=== PATIENT | male | born 1985 | race Caucasian/White ===

== ENCOUNTER 2017-10-21 09:59 | Emergency (ER) | payer OTHER ==
[~2017-10-21] VITALS: Ht 180.3 cm; Wt 85.0 kg
[2017-10-21 10:05] VITALS: TEMP 36.7; Ht 180.3 cm; Wt 85.0 kg
[2017-10-21] MEDS ORDERED: LIDOCAINE 1% BUFFERED INJ 5 ML VIAL INFIL ONE (10:30)
[2017-10-21] MEDS ORDERED: DIVA500T5 PO (10:58)
[2017-10-21] MEDS ORDERED: TOPI50TA16 PO (10:58)
[2017-10-21] MEDS ORDERED: FLUO20CA35 PO (10:58)
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
--- NOTE | 2017-10-21 11:10 | DIAGNOSTIC IMAGING REPORT ---
CT SCAN OF THE CERVICAL SPINE CLINICAL HISTORY: Head injury. COMPARISON STUDY: No priors. TECHNIQUE: CT scan of the cervical spine is performed from the skull base to the upper thoracic spine. Images are reviewed in the axial, sagittal, and coronal planes. IV contrast was not administered for this examination. A dose lowering technique was utilized adhering to the principles of ALARA. CT DOSE: 1561.98 mGy.cm FINDINGS: Skeletal structures: The skeletal structures are well mineralized. There is no evidence of fracture or subluxation involving the cervical spine. Vertebral body height and alignment are maintained. There is straightening of the cervical lordosis. Small anterior osteophytes are seen in the lower cervical spine. The odontoid process and lateral masses are intact. The atlantoaxial articulation is preserved. The spinous processes appear intact. Intervertebral discs: There is mild to moderate disc space narrowing at C5-C6. Mild disc space narrowing is seen at C6-C7. The remaining disc spaces are maintained. Central canal: Tiny posterior disc osteophyte complexes at C3-C4, C5-C6, and C6-C7 may contribute to mild acquired compromise of the central canal. Soft tissues: The prevertebral and paraspinous soft tissues are within normal limits. Calvarium: The visualized calvarium at the skull base appears intact. Brain parenchyma: Partially visualized brain parenchyma the skull base is within normal limits. Sinuses and mastoids: Trace mucosal thickening is seen in the left sphenoid sinus. There is a small right mastoid effusion. The left mastoid air cells are well pneumatized. Lung apices: Clear as visualized. Surgical clips are seen in the superior mediastinum. IMPRESSION: There is no evidence of fracture or subluxation involving the cervical spine. Electronically signed by: Michael Kim M.D. 10/21/2017 11:09 AM Dictated Date/Time: 10/21/2017 11:05 AM
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
--- NOTE | 2017-10-21 12:13 | DIAGNOSTIC IMAGING REPORT ---
PA CHEST WITH RIGHT-SIDED RIB SERIES CLINICAL HISTORY: Right-sided chest wall pain. FINDINGS: A PA chest radiograph and 5 additional views may right-sided rib series are obtained. No prior studies are available for comparison at the time of dictation. The heart is top normal for projection. The mediastinal contour is within normal limits. There is calcification and/or postoperative change involving the thoracic aorta. Surgical clips project over the mediastinum. There are low lung volumes with elevation of the right hemidiaphragm and bibasilar opacities. This likely represents atelectasis. No large pleural effusion or pneumothorax is seen. Chronic posttraumatic deformity seen involving the left posterior fourth rib. Additional healed left-sided rib fractures are noted. There is no radiographic evidence of distracted right-sided rib fracture on the rib series. There is age indeterminant deformity of the right anterior 10th and 11th ribs IMPRESSION: 1. There are low lung volumes. Bibasilar opacities likely represent atelectasis. 2. The lungs are otherwise clear. No pneumothorax is seen. 3. There is no distracted right-sided rib fracture seen on the rib series. 4. There is contour deformity from age indeterminant right anterior 10th and 11th rib fractures. Clinical correlation will be required. 5. There are numerous healed left-sided rib fractures. Electronically signed by: Michael Kim M.D. 10/21/2017 12:12 PM Dictated Date/Time: 10/21/2017 12:07 PM
[2017-10-21 13:05] VITALS: BP 145/84; PULSE 74; O2SAT 99
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
== END 2017-10-21 13:06 | disposition home or self-care (01) ==
LOC: C.EDB 10:03
DX: S20.211A Contusion of right front wall of thorax, initial encounter (principal); S01.81XA Laceration without foreign body of other part of head, initial encounter; S01.511A Laceration without foreign body of lip, initial encounter; W19.XXXA Unspecified fall, initial encounter; Y92.149 Unspecified place in prison as the place of occurrence of the external cause; Z79.899 Other long term (current) drug therapy